=== PATIENT | male | born 1970 | race Caucasian/White ===

== ENCOUNTER 2021-10-01 14:48 | Emergency (ER) | payer OTHER, SELFPAY ==
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
[2021-10-01 14:57] VITALS: BP 144/70; PULSE 75; RESP 18; TEMP 36.6; O2SAT 100
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
[2021-10-01] MEDS: HYDROmorphone HCL INJ (*CRX) 1 MG/ML SYR 0.5 MG IV PUSH (16:10)
[2021-10-01 16:21] LABS: Basophils Absolute Auto 0.1 K/mm3 (0.0-0.1); Basophils Percent Auto 0.8 % (0.2-1.2); Eosinophils Absolute Auto 0.4 K/mm3 (0-0.3); Eosinophils Percent Auto 5.1 % (0-4.4); Hematocrit 28.2 % (42.0-52.0); Hemoglobin 7.3 g/dL (14.0-18.0); Immature Granulocyte Absolute 0.04 K/mm3 (0.00-0.031); Immature Granulocyte Percent A 0.5 % (0-0.5); Lymphocytes Absolute Auto 1.83 K/mm3 (0.9-3.2); Lymphocytes Percent Auto 24.6 % (18.3-44.2); Mean Corpuscular HGB Conc 25.9 g/dl (32-36); Mean Corpuscular Hemoglobin 18.6 pg (26-34); Mean Corpuscular Volume 71.9 fl (80-100); Monocytes Absolute Auto 0.6 K/mm3 (0.1-0.6); Monocytes Percent Auto 7.8 % (2.6-8.5); Neutrophils Absolute Auto 4.6 K/mm3 (1.3-6.7); Neutrophils Percent Auto 61.2 % (45.5-73.1); Platelet Count Result 381 k/mm3 (150-375); Red Blood Count 3.92 M/mm3 (4.6-6.20); Red Cell Distribution Width 19.1 % (11.5-14.5); White Blood Count 7.5 K/mm3 (4.5-10.0)
[2021-10-01 16:37] LABS: Anion Gap 5 mmol/L (8-16); Blood Urea Nitrogen 16 mg/dL (9-20); Calcium 8.8 mg/dL (8.4-10.2); Carbon Dioxide 29 mmol/L (22-30); Chloride 102 mmol/L (98-107); Estimated CRCL calculation 105 ml/min; Estimated Glomerular Filt Rate > 60; Glucose 124 mg/dL (65-110); Potassium 4.4 mmol/L (3.4-5.0); Sodium 136 mmol/L (137-145)
[2021-10-01 16:45] LABS: Hypochromasia 3+ (NORMAL); Platelet Estimate Increased (Adequate)
[2021-10-01 16:46] LABS: Stomatocytes 1+ (NORMAL)
[2021-10-01 17:51] VITALS: BP 150/93; PULSE 79; RESP 20; O2SAT 97
== END 2021-10-01 17:53 | disposition home or self-care (01) ==
PROVIDERS: Emergency Provider Emergency Medicine; PCP Internal Medicine
DX: S16.1XXA Strain of muscle, fascia and tendon at neck level, initial encounter (principal); S30.1XXA Contusion of abdominal wall, initial encounter; S46.912A Strain of unspecified muscle, fascia and tendon at shoulder and upper arm level, left arm, initial encounter; I10 Essential (primary) hypertension; D64.9 Anemia, unspecified; V49.40XA Driver injured in collision with unspecified motor vehicles in traffic accident, initial encounter
CPT/HCPCS: 36415; 71260; 72125; 74177; 80048; 85025; 96374; 99284; J1170; Q9967

== ENCOUNTER 2024-06-15 11:20 | Emergency (ER) | payer OTHER, SELFPAY ==
--- NOTE | ~2024-06-15 | XR_ITS ---
XR ankle LT min 3V Ordering provider: Agueda Mark History: . left ankle pain, fall . Comparison: None. FINDINGS: BONES: No acute fracture or dislocation. JOINT SPACES: The ankle mortise is normal. SOFT TISSUES: Soft tissue swelling over the lateral malleolus. IMPRESSION: No acute osseous abnormality left ankle. Reviewed, dictated and finalized at location A. HER
--- NOTE | ~2024-06-15 | XR_ITS ---
XR knee RT min 4V Ordering provider: Agueda Mark History: . right knee pain, injury . Comparison: None. FINDINGS: BONES: No acute fracture or dislocation. JOINT SPACES: Normal. Marginal spurs in the patella. SOFT TISSUES: Normal. IMPRESSION: No acute osseous abnormality right knee. Mild osteoarthritic changes. Reviewed, dictated and finalized at location A. D [employer]ATE
[2024-06-15 11:40] VITALS: BP 133/75; PULSE 80; RESP 18; TEMP 36.6; O2SAT 96
--- NOTE | 2024-06-15 14:52 | ED.LOWEXIN ---
HPI - Extremity Injury (Lower) General Chief Complaint: Extremity Injury, Lower <Agueda Mark PA-C - Last Filed: 06/16/24 15:31> Stated Complaint: left ankle pain, right knee pain <Agueda Mark PA-C - Last Filed: 06/16/24 15:31> Time Seen by Provider: 06/15/24 14:52 <Agueda Mark PA-C - Last Filed: 06/16/24 15:31> Focused HPI: This is a 53 year old male that presents to the ER after a fall. Reports his foot was asleep and he stood up and tried to walk and rolled his ankle. Reports right knee and left ankle pain. He did not hit his head or lose consciousness. GENERAL: Well-appearing, well-nourished, and in no acute distress. HEAD: Normocephalic, atraumatic. CHEST: Clear to auscultation. ?No respiratory distress. HEART: Regular rate and rhythm.? NEURO: ?Alert and oriented x3. Patient screened in triage and initial orders placed.? ?Additional care and disposition to be based upon?diagnostic testing and treatment. <Agueda Mark PA-C - Last Filed: 06/16/24 15:31> History of Present Illness HPI Narrative: Agree with the HPI above <Skip Abarca MD - Last Filed: 06/15/24 21:08> Related Data Allergies/Adverse Reactions: Allergies Allergy/AdvReac Type Severity Reaction Status Date / Time No Known Allergies Allergy Unknown Verified 06/15/24 15:04 <Agueda Mark PA-C - Last Filed: 06/16/24 15:31> Review of Systems Review of Systems: As reviewed above in HPI <Skip Abarca MD - Last Filed: 06/15/24 21:08> PMFSH Family History Family History: Family History Father Hypertension Family history of diabetes mellitus in first degree relative Sibling Hypertension Mother Family history of kidney disease <Agueda Mark PA-C - Last Filed: 06/16/24 15:31> Social History Social History: Social History Smoking status: Never smoker Alcohol intake: current <Agueda Mark PA-C - Last Filed: 06/16/24 15:31> Exam Narrative: GENERAL: [Well-appearing, well-nourished, and in no acute distress.] HEAD: [Normocephalic, atraumatic.] EYES: [PERRLA and EOMI.] ENT: Nares clear, no rhinorrhea or epistaxis. Mucous membranes moist. NECK: Supple. CHEST: [Clear to auscultation. No respiratory distress.] HEART: [Regular rate and rhythm]. No murmur heard. [Normal peripheral pulses.] ABDOMEN: [Soft, nondistended], [nontender], [No rigidity or guarding] EXTREMITIES: Audible clicking noise with the right knee when extending it. Full range of motion with both active and passive flexion and extension at the knee and ankle and hip. Left ankle with some tenderness to palpation in overlying ecchymoses but no significant swelling or deformity. No instability to the joint, plantar dorsiflexion full bilaterally. No plantar ecchymosis. SKIN: Warm, dry, no rash. NEURO: [No focal deficits]. Alert and oriented [x3.] PSYCH: [Normal mood and affect.] <Skip Abarca MD - Last Filed: 06/15/24 21:08> Course Vital Signs Vital signs: Vital Signs Temperature 97.8 F 06/15/24 11:40 Pulse Rate 80 06/15/24 11:40 Respiratory Rate 18 06/15/24 11:40 Blood Pressure 133/75 06/15/24 11:40 Pulse Oximetry 96 06/15/24 11:40 Temperature 97.8 F 06/15/24 11:40 Pulse Rate 84 06/15/24 16:28 Respiratory Rate 16 06/15/24 16:28 Blood Pressure 139/88 06/15/24 16:28 Pulse Oximetry 99 06/15/24 16:28 <Agueda Mark PA-C - Last Filed: 06/16/24 15:31> Vital Signs Temperature 97.8 F 06/15/24 11:40 Pulse Rate 80 06/15/24 11:40 Respiratory Rate 18 06/15/24 11:40 Blood Pressure 133/75 06/15/24 11:40 Pulse Oximetry 96 06/15/24 11:40 Temperature 97.8 F 06/15/24 11:40 Pulse Rate 84 06/15/24 16:28 Respiratory Rate 16 06/15/24 16:28 Blood Pressure 139/88 06/15/24 16:28 Pulse Oximetry 99 06/15/24 16:28 <Skip Abarca MD - Last Filed: 06/15/24 21:08> MDM - Extremity Injury (Lower) MDM Narrative Medical decision making narrative: 53-year-old male presenting after he rolled his left ankle and then fell onto his right hip. Did not hit his head or lose consciousness. Examination does show a sprain to his left ankle with a bruise to the anterior joint just proximal to the lateral malleolus. No instability in the ankle. Full range of motion. His right knee does have a audible clicking noise when he extends it although he has full range of motion no significant pain there. He was told they previously had an MCL injury that was never repaired. Examination shows good extensor mechanisms and is able ambulate without significant pain. X-rays will be obtained and he was provided pain control medications. X-ray showed no acute osseous process he was provided an Lexx wrap and a knee immobilizer for support and instructions on follow-up. He verbalized understanding was safe for discharge at this time. <Skip Abarca MD - Last Filed: 06/15/24 21:08> Medical Records Attestation: I reviewed the patient's medical records. <Skip Abarca MD - Last Filed: 06/15/24 21:08> Imaging Data Attestation: I personally reviewed and interpreted this imaging study as follows: <Skip Abarca MD - Last Filed: 06/15/24 21:08> My impression: Impressions Ankle X-Ray 06/15/24 15:23 IMPRESSION: No acute osseous abnormality left ankle. Knee X-Ray 06/15/24 15:24 IMPRESSION: No acute osseous abnormality right knee. Mild osteoarthritic changes. <Skip Abarca MD - Last Filed: 06/15/24 21:08> Critical Care Time Critical Care Time Critical Care Time: No <Agueda Mark PA-C - Last Filed: 06/16/24 15:31> Discharge Plan Discharge Clinical Impression: Ankle sprain and strain, History of disruption of medial collateral ligament Right knee injury Qualifiers: Encounter type: initial encounter Qualified Code(s): S89.91XA - Unspecified injury of right lower leg, initial encounter <DELISA Holguin Last Filed: 06/16/24 15:31> Patient Disposition: Home, Self-Care <DELISA Holguin Last Filed: 06/16/24 15:31> Condition: Stable <DELISA Holguin Last Filed: 06/16/24 15:31> Instructions: Antibiotic Form, Ankle Sprain (ED), Knee Sprain (DC), Knee Pain (ED), Knee Immobilizer (ED) <DELISA Holguin Last Filed: 06/16/24 15:31> Additional Instructions: Your x-ray shows no bony injuries however given your MCL tear and symptomatology I believe you likely need to see orthopedic surgery for repeat evaluation and even MRI imaging on outpatient basis. We will provide you a knee immobilizer and Lexx wrap. We will send you home with some pain medication prescriptions. Follow up on outpatient basis. Return with any new or worsening concerns at any time. <Agueda Mark PA-C - Last Filed: 06/16/24 15:31> Patient Language: [place] <DELISA Holguin Last Filed: 06/16/24 15:31> Prescriptions: New acetaminophen [Tylenol Extra Strength] 500 mg tablet 1,000 mg PO TID PRN (Reason: pain) Qty: 30 0RF ketorolac 10 mg tablet 10 mg PO Q8H PRN (Reason: pain) 5 Days Qty: 20 0RF Rx Instructions: maximum total duration of 5 days from all oral, intranasal, or parenteral formulations methocarbamol 750 mg tablet 750 mg PO TID PRN (Reason: pain) Qty: 20 0RF lidocaine 5 % adhesive patch,medicated 1 patch topical DAILY Qty: 15 0RF Rx Instructions: leave on most painful area for up to 12 hrs No Action tramadol [Ultram] 50 mg tablet 50 mg PO Q6H PRN (Reason: pain) Qty: 12 0RF <Agueda Mark PA-C - Last Filed: 06/16/24 15:31> Follow-up/Referrals: PHYSICIAN NOT ON STAFF,NONSTAFF [Primary Care Provider] - <Agueda Mark PA-C - Last Filed: 06/16/24 15:31> Time of Disposition: 16:07 <Agueda Mark PA-C - Last Filed: 06/16/24 15:31> 16:07 <Skip Abarca MD - Last Filed: 06/15/24 21:08>
[2024-06-15] MEDS: KETOROLAC 30 MG/ML VIAL (*BKC) IM (16:24)
[2024-06-15] MEDS: ACETAMINOPHEN 500 MG TABLET 1000 MG PO (16:24)
[2024-06-15 16:28] VITALS: BP 139/88; PULSE 84; RESP 16; O2SAT 99
== END 2024-06-15 16:29 | disposition home or self-care (01) ==
PROVIDERS: Emergency Provider Student in an Organized Health Care Education/Training Program
DX: S93.402A Sprain of unspecified ligament of left ankle, initial encounter (principal); S89.91XA Unspecified injury of right lower leg, initial encounter; W19.XXXA Unspecified fall, initial encounter
CPT/HCPCS: 73564; 73610; 96372; 99284; A9270; J1885

== ENCOUNTER 2024-09-15 09:57 | Emergency (ER) | payer OTHER, SELFPAY ==
--- NOTE | ~2024-09-15 | XR_ITS ---
XR chest 2V Ordering provider: Robert Mclain APRN History: 53 years Male with . cough/sob . Comparison: October 31, 2013 FINDINGS: MEDIASTINUM: The cardiac silhouette is not enlarged. Congestive vi. LUNGS: No infiltrates, effusions or pneumothorax. Prominent bronchovascular markings in the lower lobes. OTHER: No free air under the diaphragm. Postoperative changes in the lower cervical area. Degenerative changes of the spine. IMPRESSION: No acute cardiopulmonary pathology. Reviewed, dictated and finalized at location A.
[2024-09-15 10:01] VITALS: BP 184/103; PULSE 114; RESP 20; TEMP 37.1; O2SAT 95
--- NOTE | 2024-09-15 10:15 | ED_ITS ---
HPI - URI/Sore Throat General Chief Complaint: Upper Respiratory Infection Stated Complaint: chest congestion,cough,sore throat,ST[place]EN[place] Time Seen by Provider: 09/15/24 10:10 Source: patient and family Mode of arrival: ambulatory Limitations: no limitations History of Present Illness HPI Narrative: Julio is a 53-year-old male patient presenting to the clinic today with complaints of cough, sore throat, headache, chest congestion, shortness of breath, and some body aches. He reports symptoms started about 3-4 days ago. Has had exposure to strep throat in the home. Is coughing up a lot of clear phlegm. History of pneumonia. Denies any known fever. Denies any chest pain. Shortness of breath is on exertion. 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 Patient denies any fever, chills, rash, visual changes, dizziness, chest pain, palpitations, nausea, vomiting, diarrhea, constipation, abdominal pain, or any urinary issues. [facility] Family History Family History Father Hypertension Family history of diabetes mellitus in first degree relative Sibling Hypertension Mother Family history of kidney disease Social History Social History Smoking status: Never smoker Alcohol intake: current Comments At the time of my signature, I reviewed and agree with the nursing past medical, surgical, social, and family history. There is no relevant family history pertinent to the patient complaint. Exam Narrative: General: Well-developed, morbidly obese, in no apparent distress Head: Normocephalic, atraumatic Eyes: Pupils equally round and reactive to light bilaterally, EOM intact, sclera and conjunctive clear, no discharge, lids normal Ears: TMs intact and clear, ear canals clear, no drainage, grossly hearing normal. Nose: Nares patent, clear nasal discharge, no inflammation, no sinus tenderness. Mouth: Oral pharynx red without lesions or masses, good dentition, MMM. Postnasal drip Neck: Supple, trachea midline, no enlargement of anterior or posterior cervical nodes, no thyroid masses or goiter palpable. Cardio: Regular rate and rhythm, s1 and s2 normal, no murmur appreciated. Resp: Expiratory rhonchi/wheeze with crackles in the lower bases, no rubs Extremities: No deformity, no edema, no cyanosis, capillary refill less than 2 seconds, peripheral pulses palpable and strong. Integumentary: [place], warm, and dry, intact without lesion, no rashes. Course Course Emergency Course: Portions of this record may have been created with voice recognition software. Level of Care: Express Care Visit Vital Signs Vital signs: Vital Signs Temperature 37.1 C 09/15/24 10:01 Pulse Rate 114 H 09/15/24 10:01 Respiratory Rate 20 09/15/24 10:01 Blood Pressure 184/103 H 09/15/24 10:01 Pulse Oximetry 95 09/15/24 10:01 Oxygen Delivery Room Air 09/15/24 10:01 Temperature 37.1 C 09/15/24 10:01 Pulse Rate 114 H 09/15/24 10:20 Respiratory Rate 20 09/15/24 10:20 Blood Pressure 184/103 H 09/15/24 10:01 Pulse Oximetry 95 09/15/24 10:20 Oxygen Delivery Room Air 09/15/24 10:01 Vital signs reviewed MDM - URI/Sore Throat MDM Narrative Medical decision making narrative: At the time of visit patient is resting comfortably on the exam table. Patient appears to be nontoxic. Labs: COVID, influenza, and strep test were performed. Strep and COVID testing were negative. Influenza A testing was positive. Diagnostics: Chest x-ray was performed and negative for any acute cardiopulmonary process. Medications: DuoNeb handheld treatment given in the clinic today-this improved patient's lung sounds and feels as though he can take deeper breaths Plan: Patient has influenza A. Will send in prescription for albuterol inhaler. Recommend taking Coricidin HBP for cold/flu symptoms. Supportive measures were discussed with the patient and they voiced understanding discharge instructions and agrees to treatment plan. Return precautions reviewed Differential Diagnosis Differential diagnosis: Likely upper respiratory infection, otitis media, sinusitis, viral infection, bronchitis, influenza, pharyngitis and other (COVID, pneumonia) Lab Data Labs: Lab Results 09/15/24 Range/Units 10:37 POC Influenza A Ag Positive (Negative) POC Influenza B Ag Negative (Negative) POC SARS CoV-2 Ag Negative (Negative) POC Grp A Strep Screen Negative (Negative) Imaging Data Radiologist's impression: ITS Impressions Chest X-Ray 09/15/24 10:48 IMPRESSION: No acute cardiopulmonary pathology. Discharge Plan Discharge Clinical Impression: Influenza A Patient Disposition: Home Condition: Stable Instructions: Antibiotic Form, Influenza (ED) Additional Instructions: Influenza A testing is negative in the clinic today. Strep and COVID testing was negative. We will send strep for culture. May take Coricidin HBP for cold/flu symptoms Take medications as prescribed-albuterol inhaler Increase fluids and stay well hydrated Tylenol/motrin for pain/fever Flonase and OTC antihistamines as directed Vicks vapor rub to open sinuses Sinus rinses for congestion Cepacol spray, cough drops, throat lozenges, warm tea with honey/lemon, gargle salt water to soothe throat BRAT diet for diarrhea Clear liquids x 24 hours then advance as tolerated for nausea/vomiting Go to the ED if you develop a worsening in your condition- high fever not controlled by Tylenol or Motrin, dehydration, weakness, lethargy, shortness of breath, or chest pain. Follow up with your PCP in 3-5 days if symptoms persist. 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
[2024-09-15 10:20] VITALS: PULSE 114; RESP 20; O2SAT 95
[2024-09-15] MEDS: IPRATROPIUM 0.5 MG/ALBUTEROL SULFATE 2.5 MG AMPUL.NEB 3 ML INHALATION (10:30)
[2024-09-15 10:40] LABS: EDCOVIDSCREEN Negative (Negative); EDINFLUASCREEN Positive (Negative); EDINFLUBSCREEN Negative (Negative); EDSTREPNEGPOS1 Negative (Negative)
== END 2024-09-15 11:05 | disposition home or self-care (01) ==
PROVIDERS: Emergency Provider Nurse Practitioner Family
DX: J10.1 Influenza due to other identified influenza virus with other respiratory manifestations (principal); Z20.822 Contact with and (suspected) exposure to COVID-19; R06.09 Other forms of dyspnea
CPT/HCPCS: 71046; 87081; 87426; 87804; 87880; 94640; 99213; G0463